=== PATIENT | male | born 1990 | race Caucasian/White ===

== ENCOUNTER 2022-05-11 02:16 | Emergency (ER) | payer OTHER ==
[~2022-05-11] VITALS: Ht 177.8 cm; Wt 81.7 kg
== END 2022-05-11 06:35 | disposition home or self-care (01) ==
LOC: ER 02:16
DX: R40.4 Transient alteration of awareness (principal); T40.415A Adverse effect of fentanyl or fentanyl analogs, initial encounter; F17.200 Nicotine dependence, unspecified, uncomplicated
CPT/HCPCS: 99284

== ENCOUNTER 2024-02-25 11:52 | Day surgery (SDC) | payer OTHER ==
[2024-02-25] VITALS (16 sets, daily range): BP systolic 80–121; BP diastolic 49–83
[~2024-02-25] VITALS: Ht 173 cm; Wt 86.0 kg
[~2024-02-25 11:52] MED LIST: CeFAZolin Sodium 2,000 MG in NS 100 ML IV SCH; Dexamethasone Sod Phos 10 MG/ML 1ML VIAL ONE; Ketorolac Tromethamine 30mg Vial ONE; Lactated Ringer's 1,000 ML IV SCH; Metoclopramide HCl 5MG / ML 2ML Vial ONE; Ondansetron HCl 2 MG / ML 2ML Vial ONE; Rocuronium Bromide 10 MG/ML 5ML Injection IV ONE; Sugammadex Sodium 200 MG/2ML SDV (100 MG/ML) ONE; propofoL 100 ML IV ONE
[2024-02-25] MEDS ORDERED: Acetaminophen 500 MG Tab PO ONE (12:00)
[2024-02-25] MEDS ORDERED: HYDROmorphone HCl/Pf 1MG SYR ONE ×2 (12:10→14:18)
[2024-02-25] MEDS ORDERED: Ketamine HCl 100 MG / ML 5ML Vial ONE (12:10)
--- NOTE | 2024-02-25 12:16 | NUR ---
History, Chart, Medications and Allergies reviewed before start of procedure. Patient up to Ambulate independently. Gait steady. Pre-Op teaching done. Pt verbalizes understanding. Patient confirms NPO status and agrees with scheduled surgery. Patient reports completing Chlorhexadine shower X2 prior to admission to hospital. Surgical site prepped with 2% Chlorhexidine cloth wipe. Patient States Post-Procedure ride home has been arranged.
[2024-02-25] MEDS ORDERED: Bupivacaine 0.5% HCl 5 MG/ML 30MLVIAL ONE (12:17)
[2024-02-25] MEDS ORDERED: Metoclopramide HCl 5MG / ML 2ML Vial ONE (12:21)
[2024-02-25] MEDS ORDERED: Rocuronium Bromide 10 MG/ML 5ML Injection IV ONE (13:02)
[2024-02-25] MEDS ORDERED: propofoL 20 ML IV ONE (13:24)
[2024-02-25] MEDS ORDERED: propofoL 40 ML IV ONE (13:45)
[2024-02-25] MEDS ORDERED: OxyCODONE 5 mg/Acetamin 325 mg TABLET PO PRN (15:00)
--- NOTE | 2024-02-25 16:38 | NUR ---
Patient up to Ambulate independently. Gait steady. Discharge instructions reviewed with patient. Patient verbalizes understanding. Copy given to patient to take home. Patient States Post-Procedure ride home has been arranged. Discharged via wheelchair to private car for ride home.
== END 2024-02-25 16:38 | disposition home or self-care (01) ==
LOC: ORSCMMR 11:52 → ORD 13:15 → ORSCMMR 13:15
DX: K40.90 Unilateral inguinal hernia, without obstruction or gangrene, not specified as recurrent (principal); K41.30 Unilateral femoral hernia, with obstruction, without gangrene, not specified as recurrent; D36.0 Benign neoplasm of lymph nodes; F17.290 Nicotine dependence, other tobacco product, uncomplicated
CPT/HCPCS: 88305; A9270; C1781; J0690; J1100; J1171; J1885; J2405; J2704; J2765; J7120